=== PATIENT | female | born 1975 | race Caucasian/White ===

== ENCOUNTER 2021-02-28 13:19 | Emergency (ER) | payer MEDICAID ==
[~2021-02-28] VITALS: Ht 154.9 cm; Wt 102.5 kg
[~2021-02-28 13:19] MED LIST: IBUP-1969 PO; TYC3 PO
[2021-02-28 13:20] VITALS: BP_SYST 112
[2021-02-28] MEDS ORDERED: CYCL10TA24 PO (14:41)
[2021-02-28 14:42] LABS: BASOPHILS # (AUTO) 0.1 K/uL (0.0-0.2); BASOPHILS % (AUTO) 1.2 % (0.0-2.0); EOSINOPHILS # (AUTO) 0.5 K/uL (0.0-0.4); EOSINOPHILS % (AUTO) 5.3 % (0.0-4.0); HEMATOCRIT 44.8 % (36-48); HEMOGLOBIN 14.7 g/dL (12.0-16.0); LYMPHOCYTES # (AUTO) 2.3 K/uL (1.0-5.5); LYMPHOCYTES % (AUTO) 25.9 % (20.5-51.5); MEAN CORPUSCULAR HEMOGLOBIN 26 pg (27-31); MEAN CORPUSCULAR HGB CONC 33 % (32-36); MEAN CORPUSCULAR VOLUME 79 fL (79.0-98.0); MONOCYTES # (AUTO) 0.5 K/uL (0.0-1.0); MONOCYTES % (AUTO) 5.8 % (1.7-9.3); NEUTROPHILS # (AUTO) 5.5 K/uL (1.8-7.7); NEUTROPHILS % (AUTO) 61.8 % (40.0-70.0); PLATELET COUNT (AUTO) 314 K/uL (130-430); RED BLOOD CELL COUNT(AUTO) 5.69 MIL/uL (4.2-6.2); RED CELL DISTRIBUTION WIDTH 14.2 % (9.0-15.0); WHITE BLOOD COUNT (AUTO) 8.9 K/uL (4.8-10.8)
[2021-02-28] MEDS ORDERED: CYCLOBENZAPRINE HCL 10 MG TABLET (FLEXERIL) PO ONE (14:45)
[2021-02-28 15:16] LABS: CALCIUM 9.2 mg/dL (8.4-11.0); CREATININE 0.61 mg/dL (0.55-1.30); POTASSIUM 3.5 mmol/L (3.5-5.1)
[2021-02-28 15:19] LABS: PHOSPHORUS 5.3 mg/dL (2.7-4.5)
[2021-02-28] MEDS ORDERED: NACL 0.9% 1,000 ML IV ONE (15:45)
[2021-02-28 16:48] LABS: FREE T4 (FREE THYROXINE) 1.2 ng/dl (0.8-1.5); THYROID STIMULATING HORMONE 1.44 uIu/mL (0.36-3.74)
[2021-03-01] MEDS ORDERED: NACL 0.9% 1,000 ML IV ONE (01:00)
[2021-03-01] MEDS ORDERED: FUROSEMIDE 20 MG/2 ML VIAL IVP ONE (01:00)
[2021-03-01] MEDS ORDERED: CYCL10TA24 PO (02:44)
[2021-03-01] MEDS ORDERED: FURO-150 PO (02:44)
[2021-03-01] MEDS ORDERED: POTA8TAB4 PO (02:44)
[2021-03-01 02:55] VITALS: BP_SYST 124
== END 2021-03-01 02:55 | disposition home or self-care (01) ==
LOC: SED 13:19
DX: E83.39 Other disorders of phosphorus metabolism (principal); E87.1 Hypo-osmolality and hyponatremia; M62.838 Other muscle spasm; D72.10 Eosinophilia, unspecified; Z20.822 Contact with and (suspected) exposure to COVID-19; Z88.1 Allergy status to other antibiotic agents
CPT/HCPCS: 36415; 80048; 82550; 83735; 84100; 84439; 84443; 85025; 87426; 93005; 96360; 96361; 99284; J1940; J7030

== ENCOUNTER 2021-05-19 14:15 | Emergency (ER) | payer MEDICAID, SELFPAY ==
[~2021-05-19] VITALS: Ht 154.9 cm; Wt 102.5 kg
[~2021-05-19 14:15] MED LIST changes: +CYCL10TA24 PO; +FURO-150 PO; -IBUP-1969 PO; +POTA8TAB66 PO; -TYC3 PO
[2021-05-19 15:11] VITALS: BP_SYST 129
[2021-05-19 15:41] LABS: BILIRUBIN,URINE NEGATIVE (NEGATIVE); CLARITY/URINE CLEAR (CLEAR); COLOR,URINE YELLOW (YELLOW); GLUCOSE,URINE NEGATIVE (NEGATIVE); KETONES,URINE NEGATIVE (NEGATIVE); LEUKOCYTE ESTERASE ,URINE 1+ (NEGATIVE); NITRITE, URINE NEGATIVE (NEGATIVE); PH,URINE 6.5 (5.0-8.0); PROTEIN URINE NEGATIVE (NEGATIVE); UROBILINOGEN,URINE 0.2 (0.2-1.0)
[2021-05-19 15:49] LABS: BLOOD, URINE TRACE (NEGATIVE)
[2021-05-19 16:19] LABS: BACTERIA,URINE RARE /HPF (None Seen)
[2021-05-19 16:45] LABS: BASOPHILS # (AUTO) 0.1 K/uL (0.0-0.2); BASOPHILS % (AUTO) 0.8 % (0.0-2.0); EOSINOPHILS # (AUTO) 0.7 K/uL (0.0-0.4); EOSINOPHILS % (AUTO) 8.3 % (0.0-4.0); HEMATOCRIT 43.7 % (36-48); HEMOGLOBIN 14.1 g/dL (12.0-16.0); LYMPHOCYTES # (AUTO) 1.9 K/uL (1.0-5.5); LYMPHOCYTES % (AUTO) 21.7 % (20.5-51.5); MEAN CORPUSCULAR HEMOGLOBIN 26 pg (27-31); MEAN CORPUSCULAR HGB CONC 32 % (32-36); MEAN CORPUSCULAR VOLUME 79 fL (79.0-98.0); MONOCYTES # (AUTO) 0.4 K/uL (0.0-1.0); MONOCYTES % (AUTO) 4.8 % (1.7-9.3); NEUTROPHILS # (AUTO) 5.5 K/uL (1.8-7.7); NEUTROPHILS % (AUTO) 64.4 % (40.0-70.0); PLATELET COUNT (AUTO) 304 K/uL (130-430); RED BLOOD CELL COUNT(AUTO) 5.52 MIL/uL (4.2-6.2); RED CELL DISTRIBUTION WIDTH 14.8 % (9.0-15.0); WHITE BLOOD COUNT (AUTO) 8.6 K/uL (4.8-10.8)
[2021-05-19 17:12] LABS: CALCIUM 8.6 mg/dL (8.4-11.0); CREATININE 0.44 mg/dL (0.55-1.30); POTASSIUM 4.1 mmol/L (3.5-5.1)
[2021-05-19 17:24] LABS: ALBUMIN 3.5 g/dL (3.4-4.8); TOTAL BILIRUBIN 0.1 mg/dL (0.0-1.0)
[2021-05-19] MEDS ORDERED: METOCLOPRAMIDE HCL 10 MG/2 ML VIAL IVP ONE (18:00)
[2021-05-19] MEDS ORDERED: DIPHENHYDRAMINE INJ 50 MG/ML VIAL IVP ONE (18:00)
--- NOTE | 2021-05-19 19:55 | NUR ---
Placed in room 07 . Placed on desk monitor, blood pressure machine and pulse oximeter. To gown for exam. Side rails up.
--- NOTE | 2021-05-19 20:45 | NUR ---
RECEIVED PT FROM THE LOBBY, PT A&O X4, VERBAL, AMBULATORY, NO SOB/ DISTRESS, WITH C/O ABD'L PAIN ABOUT 7/10 WITH VOMITING SINCE YESTERDAY, FELLS NAUSEA TODAY, NO IV ACCESS.
--- NOTE | 2021-05-19 21:35 | NUR ---
WENT TO CT SCAN.
--- NOTE | 2021-05-19 21:38 | NUR ---
ER Dr. MORSE at bedside examining patient.
[2021-05-19] MEDS ORDERED: DIPHENHYDRAMINE INJ 50 MG/ML VIAL ONE (21:39)
[2021-05-19] MEDS ORDERED: METOCLOPRAMIDE HCL 10 MG/2 ML VIAL ONE (21:39)
[2021-05-19] MEDS ORDERED: FAMO-132 PO (22:18)
[2021-05-19] MEDS ORDERED: ANT30 PO (22:18)
[2021-05-19 22:42] VITALS: BP_SYST 126
--- NOTE | 2021-05-19 22:42 | NUR ---
Patient given written and verbal discharge instructions and verbalizes understanding. ER MD discussed with patient the results and treatment provided. Patient in stable condition. ID arm band removed. IV catheter removed intact and dressing applied, no active bleeding. Rx of MYLANTA AND PEPCID given. Patient educated on pain management and to follow up with PMD. Pain Scale 0/10 Opportunity for questions provided and answered. Medication side effect fact sheet provided.
== END 2021-05-19 22:42 | disposition home or self-care (01) ==
LOC: SED 14:15
DX: R10.84 Generalized abdominal pain (principal); Z88.1 Allergy status to other antibiotic agents; Z79.899 Other long term (current) drug therapy
CPT/HCPCS: 36415; 74177; 76376; 80053; 81000; 81025; 83735; 84484; 85025; 87086; 93005; 96374; 96375; 99285; J1200; J2765; Q9967